=== PATIENT | female | born 1950 | race Caucasian/White ===

== ENCOUNTER 2021-09-11 16:21 | Outpatient (REF) | payer MEDICARE, SELFPAY | END 2021-09-11 16:22 | disposition home or self-care (01) | LOC: NCHCN 16:21 | PROVIDERS: PCP Family Medicine; Visit Provider Family Medicine | DX: R30.0 Dysuria (principal) | CPT/HCPCS: 87077; 87086; 87186 ==

== ENCOUNTER 2022-08-23 09:23 | Outpatient (REF) | payer MEDICARE, SELFPAY ==
[2022-08-23 21:10] LABS: Anion Gap 8.3 mmol/L (3-11); BUN 13 mg/dL (7-18); CO2 27.7 mmol/L (21.0-32.0); CREATININE 0.7 mg/dL (0.55-1.02); Calcium 9.2 mg/dL (8.5-10.1); Calculated LDL 178 mg/dL (<100); Chloride 101 mmol/L (98-107); Cholesterol 276 mg/dL (<200); Estimated GFR 92.98 (mL/min/1.73m2); Glucose 65 mg/dL (74-106); HDL Cholesterol 86 mg/dL (40-60); Sodium 137 mmol/L (136-145); Triglyceride 64 mg/dL (<150)
== END 2022-08-23 09:24 | disposition home or self-care (01) ==
LOC: NCHCN 09:23
PROVIDERS: PCP Family Medicine; Visit Provider Family Medicine
DX: Z00.00 Encounter for general adult medical examination without abnormal findings (principal)
CPT/HCPCS: 80048; 80061